=== PATIENT | female | born 1980 | race Caucasian/White ===

== ENCOUNTER 2019-06-24 18:26 | Emergency (ER) | payer SELFPAY ==
[~2019-06-24] VITALS: Ht 142.2 cm; Wt 54.4 kg
[2019-06-24 18:32] VITALS: Ht 142.2 cm; Wt 54.4 kg
[2019-06-25 06:20] VITALS: BP 128/79
== END 2019-06-25 06:20 | disposition home or self-care (01) ==
LOC: ED 18:26
DX: F10.129 Alcohol abuse with intoxication, unspecified (principal); E11.9 Type 2 diabetes mellitus without complications